=== PATIENT | female | born 1985 | race American Indian/Alaskan Native ===

== ENCOUNTER 2016-12-13 11:14 | Emergency (ER) | payer OTHER ==
[2016-12-13 12:20] VITALS: BP 113/67
[2016-12-13] MEDS ORDERED: TORADOL IM ONE (12:46)
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
[2016-12-13] MEDS ORDERED: MOTRIN PO ONE (13:41)
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
== END 2016-12-13 13:57 | disposition home or self-care (01) ==
LOC: ED 11:14
DX: S00.33XA Contusion of nose, initial encounter (principal); S16.1XXA Strain of muscle, fascia and tendon at neck level, initial encounter; V89.2XXA Person injured in unspecified motor-vehicle accident, traffic, initial encounter; Y93.89 Activity, other specified; Y92.89 Other specified places as the place of occurrence of the external cause; Y99.8 Other external cause status
CPT/HCPCS: 70160; 72040; 99283; J1885